=== PATIENT | male | born 1985 | race Caucasian/White ===

== ENCOUNTER 2024-01-05 11:59 | Inpatient (IN) | payer SELFPAY ==
[2024-01-05 13:12] LABS: BASOPHILS ABSOLUTE AUTO 0.1 K/mm3 (0.0-0.2); BASOPHILS PERCENT AUTO 0.4 % (0.0-1.0); EOSINOPHILS ABSOLUTE AUTO 0.1 K/mm3 (0.0-0.4); EOSINOPHILS PERCENT AUTO 0.9 % (0.0-6.0); HEMATOCRIT 45.6 % (42.0-52.0); HEMOGLOBIN 15.9 gm/dl (14.0-18.0); IMMATURE GRAN ABSOLUTE AUTO 0.05 K/mm3 (0.00-0.05); IMMATURE GRAN PERCENT AUTO 0.4 % (0.0-0.4); LYMPHOCYTES ABSOLUTE AUTO 1.7 K/mm3 (1.0-4.8); LYMPHOCYTES PERCENT AUTO 12.2 % (24.0-44.0); MEAN CORPUSCULAR HEMOGLOBIN 30.1 pg (28.0-32.0); MEAN CORPUSCULAR HGB CONC 34.9 g/dl (32.0-36.0); MEAN CORPUSCULAR VOLUME 86.2 fl (83.0-99.0); NEUTROPHILS ABSOLUTE AUTO 10.9 K/mm3 (1.8-7.7); NEUTROPHILS PERCENT AUTO 79.1 % (41.0-71.0); PLATELET COUNT,PLT 248 K/mm3 (150-400); RED BLOOD CELL COUNT 5.29 M/mm3 (4.52-5.90); WHITE BLOOD CELL COUNT,WBC 13.81 K/mm3 (3.9-11.3)
[2024-01-05] MEDS: Diatrizoate Meglumine/Diatrizoate Sodium 37% 120 ML Bottle PO ONE (13:16)
[2024-01-05] MEDS: Dextrose 5%-0.9% NaCl 1,000 ML IV SCH (13:28)
[2024-01-05] MEDS: Metoclopramide 10 MG/2 ML SDV IVPUSH ONE (13:28)
[2024-01-05] MEDS: HYDROmorphone 1 MG/ML Syringe IVPUSH ONE ×2 (13:31→17:30)
[2024-01-05 13:42] LABS: A/G RATIO 1.1 (1-2); ALBUMIN 3.7 g/dl (3.4-5.0); ANION GAP 14.7 (5-15); BILIRUBIN TOTAL 0.7 mg/dL (0.2-1.0); C-REACTIVE PROTEIN 2.2 mg/dL (<0.30); CALCIUM 9.2 mg/dL (8.5-10.1); CREATININE 1.2 mg/dL (0.7-1.3); EST CRCL DRUG DOSING (CG) 88.9 mL/min; MAGNESIUM 1.9 mg/dL (1.8-2.4); POTASSIUM,K 3.7 mEq/L (3.5-5.1); PROTEIN TOTAL,TP 7.2 g/dl (6.4-8.2)
[2024-01-05] MEDS: Iopamidol 612 MG/ML 100 ML Bottle IVPUSH ONE (14:26)
[2024-01-05] MEDS: Sodium Chloride 0.9% 10 ML Syringe FLUSH ONE (14:26)
[2024-01-05] MEDS: HYDROmorphone 0.5 MG/0.5 ML Syringe IVPUSH ONE (15:15)
[2024-01-05] MEDS: Ketorolac 30 MG/ML SDV IVPUSH ONE (15:17)
[2024-01-05] MEDS: metroNIDAZOLE/Normal Saline 500 MG in Premix Bag 1 BAG IV ONE (15:17)
[2024-01-05 16:33] LABS: LACTIC ACID 0.7 mmol/L (0.4-2.0)
[2024-01-05] MEDS: Levofloxacin/Dextrose 5%-Water 750 MG in Premix Bag 1 BAG IV ONE (17:13)
[2024-01-05] MEDS ORDERED: oxyCODONE 5 MG Tab PO PRN (18:51)
[2024-01-05] MEDS ORDERED: Acetaminophen 325 MG Tab PO PRN (18:51)
[2024-01-05] MEDS: Sodium Chloride 0.9% 1,000 ML IV SCH (20:21)
[2024-01-05] MEDS: HYDROmorphone 0.5 MG/0.5 ML Syringe IVPUSH PRN (20:23)
[2024-01-05] MEDS: metroNIDAZOLE/Normal Saline 500 MG in Premix Bag 1 BAG IV SCH (22:44)
[2024-01-06 00:22] LABS: APPEARANCE,URINE CLEAR (Clear); BILIRUBIN,URINE NEGATIVE (Negative); COLOR,URINE DARK YELLOW (Yellow); GLUCOSE,URINE NEGATIVE (Negative); KETONES,URINE TRACE (Negative); LEUKOCYTE ESTERASE,URINE NEGATIVE (Negative); NITRITE,URINE NEGATIVE (Negative); OCCULT BLOOD,URINE NEGATIVE (Negative); PH,URINE 5.5 (5.0-8.0); PROTEIN,URINE 1+ (Negative); UROBILINOGEN,URINE 0.2 (0.2-1.0)
[2024-01-06 00:50] LABS: BACTERIA,URINE FEW /hpf (FEW); EPITHELIAL CELLS,URINE 0-5 /hpf (0-5); MUCUS,URINE MANY /hpf (FEW); RBC,URINE 0-5 /hpf (0-5); WBC,URINE 0-5 /hpf (0-5)
[2024-01-06 05:45] LABS: HEMATOCRIT 42.6 % (42.0-52.0); HEMOGLOBIN 14.7 gm/dl (14.0-18.0); MEAN CORPUSCULAR HEMOGLOBIN 30.4 pg (28.0-32.0); MEAN CORPUSCULAR HGB CONC 34.5 g/dl (32.0-36.0); MEAN PLATELET VOLUME 9.9 fl (9.4-12.4); PLATELET COUNT,PLT 230 K/mm3 (150-400); RED BLOOD CELL COUNT 4.84 M/mm3 (4.52-5.90); WHITE BLOOD CELL COUNT,WBC 14.35 K/mm3 (3.9-11.3)
[2024-01-06 06:18] LABS: ALBUMIN 3.1 g/dl (3.4-5.0); ANION GAP 11.4 (5-15); BILIRUBIN TOTAL 0.6 mg/dL (0.2-1.0); BUN/CREATININE RATIO 3.3 (14-18); C-REACTIVE PROTEIN 3.14 mg/dL (<0.30); CALCIUM 8.6 mg/dL (8.5-10.1); CREATININE 1.2 mg/dL (0.7-1.3); EST CRCL DRUG DOSING (CG) 88.9 mL/min; POTASSIUM,K 4.4 mEq/L (3.5-5.1); PROTEIN TOTAL,TP 6.3 g/dl (6.4-8.2)
[2024-01-06] MEDS: Enoxaparin 40 MG/0.4 ML Syringe SUBCUT SCH (08:09)
[2024-01-06] MEDS: HYDROmorphone 0.5 MG/0.5 ML Syringe ONE (12:12)
[2024-01-06] MEDS: metroNIDAZOLE/Normal Saline 100 ML ONE (14:04)
[2024-01-06] MEDS ORDERED: methylPREDNISolone Sodium Succinate 40 MG/1 ML SDV IM ONE (15:10)
[2024-01-06] MEDS ORDERED: Acetaminophen Soln 650 MG/20.3 ML UD Cup PO PRN (15:12)
[2024-01-06] MEDS ORDERED: HYDROmorphone 0.5 MG/0.5 ML Syringe IVPUSH PRN (15:15)
[2024-01-06] MEDS ORDERED: Ondansetron 4 MG/2 ML SDV IVPUSH PRN (15:57)
[2024-01-06] MEDS: Levofloxacin/Dextrose 5%-Water 750 MG in Premix Bag 1 BAG IV SCH (16:28)
[2024-01-06] MEDS: methylPREDNISolone Sodium Succinate 40 MG/1 ML SDV IVPUSH ONE (17:02)
[2024-01-06] MEDS: Ketorolac 30 MG/ML SDV IVPUSH PRN (17:03)
[2024-01-06] MEDS: Levofloxacin/Dextrose 5%-Water 150 ML IV ONE (19:38)
[2024-01-06] MEDS: HYDROmorphone 1 MG/ML Syringe ONE ×2 (19:40→19:41)
[2024-01-06] MEDS: Dextrose 5%-0.9% NaCl 1,000 ML ONE (19:40)
[2024-01-06] MEDS: Metoclopramide 10 MG/2 ML SDV ONE (19:41)
[2024-01-06] MEDS: Sodium Chloride 0.9% 1,000 ML IV SCH (20:13)
== END 2024-01-06 22:33 | disposition left against medical advice (07) | DRG 385 ==
LOC: JD.ED 11:59 → JD.MS 15:54
PROVIDERS: ADMIT Internal Medicine; ATTEND Internal Medicine
DX: K51.818 Other ulcerative colitis with other complication (principal); K65.0 Generalized (acute) peritonitis
CPT/HCPCS: 36415; 74177; 74177-26; 80053; 81001; 83605; 83690; 83735; 85025; 85027; 86140; 86850; 86900; 86901; 87045; 87046; 87493; 87899; 96361; 96365; 96375; 96376; 99285-25; J1170; J1650; J1836; J1885; J1956; J2765; J2919; J3490; J7030; J7042; Q9963; Q9967